=== PATIENT | male | born 1970 | race Caucasian/White ===

== ENCOUNTER → 2017-09-04 | Outpatient (CLI) | payer MEDICARE, OTHER ==
--- NOTE | 2017-09-04 16:21 | RADIOLOGY REPORT (SQ) ---
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 TECHNIQUE: CT scan of the chest performed using helical scanning technique with dynamic intravenous contrast injection. Images reviewed with lung, soft tissue and bone windows. Reconstructed coronal and sagittal MPR images reviewed. Additional 3 dimensional post-processing performed to develop Maximal Intensity Projection images (FL P). All images stored on PACS. All CT scanners at this facility use dose modulation, iterative reconstruction, and/or weight based d osing when appropriate to reduce radiation dose to as low as reasonably achievable (ALARA). [facility]: Dose Right [facility]: CareDose [facility]: Dose Right [facility]: Teradose 4D [facility]: [employer] CONTRAST TYPE AND DOSE: 100 cc Isovue 370- low osmolar. RENAL FUNCTION: Creatinine 1.0 RADIATION DOSE: . LIMITATIONS: None. FINDINGS: LUNGS AND PLEURA: No masses, infiltrates, pneumothorax. No pleural effusions, calcificati ons. AORTA AND GREAT VESSELS: No aneurysm. No dissection. HEART: No pericardial effusion. No significant coronary artery calcifications. PULMONARY ARTERIES: No emboli visualized in the main pulmonary arteries or the segmental branches. HILAR AND MEDIASTINAL STRUCTURES: No identified masses or abnormal nodes. HARDWARE: None in the chest. UPPER ABDOMEN: No significant findings. Limited exam. THYROID AND OTHER SOFT TISSUES: No masses. No adenopathy. BONES: No acute or significant finding. 3D MIPS: Confirm above findings. OTHER: No other significant finding. IMPRESSION: No evidence of aneurysm or dissection. COMMENT: Quality ID # [id number]: Final reports with documentation of one or more dose reduction techniques (e.g., Automated exposure control, adjustment of the mA and/or kV according to patient size, use of iterative reconstruction technique) TECHNICAL DOCUMENTATION: JOB ID: [id number] [employer]- All Rights Reserved Reading location - IP/workstation name: Unknown
== END ==
LOC: RAD 15:39
PROVIDERS: ATTEND Physician Assistant Medical
DX: I77.810 Thoracic aortic ectasia (principal)
CPT/HCPCS: 71275; 82565

== ENCOUNTER → 2017-11-27 | Day surgery (SDC) | payer MEDICARE, OTHER ==
[~2017-11-27] MED LIST: LIDOCAINE 1% INJ-PF (10 MG/ML) 30 ML SDV ONE
--- NOTE | 2017-11-27 14:11 | RADIOLOGY REPORT (SQ) ---
EXAM DESCRIPTION: FLUORO/NEEDLE PLACEMENT; ARTHRO SHOULDER INJECTION COMPLETED DATE/TIME: 11/27/2017 1:43 pm REASON FOR STUDY: S43.432A SUPERIOR GLENOID LABRUM LESION OF LEFT SHOULDER, INITIAL ENCOUNTER S43.43 2A SUPERIOR GLENOID LABRUM LESION OF LEFT SHOULDER, IN COMPARISON: None. FLUOROSCOPY TIME: 8 seconds 1 digital radiographic images saved to PACS. LIMITATIONS: None. PROCEDURE: Procedure, risks, benefits and alternatives explained to patient who then gave written co nsent. The posterior left shoulder was marked and a time out was called for correct procedure verific ation. Posterior entry site marked using fluoroscopic guidance. Shoulder prepped and draped using s terile technique. Local anesthesia achieved using 8 mL of 1% lidocaine injection. 22 gauge spinal n eedle introduced into the joint space under direct fluoroscopic visualization. Non-ionic contrast ins tilled to confirm intra-articular position. Dilute gadolinium solution then injected. Needle removed and entry site covered with sterile bandage. No immediate complications noted. TECHNIQUE: Digital images acquired during fluoroscopy and stored on PACS. Patient immediately take n to the MR suite for additional imaging. INJECTION LOCATION: Posterior left glenohumeral joint CONTRAST TYPE AND AMOUNT: 1 mL of Isovue 300 was injected to confirm intra-articular needle placement , followed by 10 mL of dilute Prohance/Saline mixture. IMPRESSION: SUCCESSFUL NEEDLE PLACEMENT AND INJECTION FOR LEFT SHOULDER MR ARTHROGRAM USING POSTERIO R APPROACH. COMMENT: Quality ID 145: Final reports for procedures using fluoroscopy that document radiation exp osure indices, or exposure time and number of fluorographic images (if radiation exposure indices are not available) TECHNICAL DOCUMENTATION: JOB ID: [id number] [employer]- All Rights Reserved Reading location - IP/workstation name: [facility]
--- NOTE | 2017-11-27 14:11 | RADIOLOGY REPORT (SQ) ---
EXAM DESCRIPTION: FLUORO/NEEDLE PLACEMENT; ARTHRO SHOULDER INJECTION COMPLETED DATE/TIME: 11/27/2017 1:43 pm REASON FOR STUDY: S43.432A SUPERIOR GLENOID LABRUM LESION OF LEFT SHOULDER, INITIAL ENCOUNTER S43.43 2A SUPERIOR GLENOID LABRUM LESION OF LEFT SHOULDER, IN COMPARISON: None. FLUOROSCOPY TIME: 8 seconds 1 digital radiographic images saved to PACS. LIMITATIONS: None. PROCEDURE: Procedure, risks, benefits and alternatives explained to patient who then gave written co nsent. The posterior left shoulder was marked and a time out was called for correct procedure verific ation. Posterior entry site marked using fluoroscopic guidance. Shoulder prepped and draped using s terile technique. Local anesthesia achieved using 8 mL of 1% lidocaine injection. 22 gauge spinal n eedle introduced into the joint space under direct fluoroscopic visualization. Non-ionic contrast ins tilled to confirm intra-articular position. Dilute gadolinium solution then injected. Needle removed and entry site covered with sterile bandage. No immediate complications noted. TECHNIQUE: Digital images acquired during fluoroscopy and stored on PACS. Patient immediately take n to the MR suite for additional imaging. INJECTION LOCATION: Posterior left glenohumeral joint CONTRAST TYPE AND AMOUNT: 1 mL of Isovue 300 was injected to confirm intra-articular needle placement , followed by 10 mL of dilute Prohance/Saline mixture. IMPRESSION: SUCCESSFUL NEEDLE PLACEMENT AND INJECTION FOR LEFT SHOULDER MR ARTHROGRAM USING POSTERIO R APPROACH. COMMENT: Quality ID 145: Final reports for procedures using fluoroscopy that document radiation exp osure indices, or exposure time and number of fluorographic images (if radiation exposure indices are not available) TECHNICAL DOCUMENTATION: JOB ID: [id number] [employer]- All Rights Reserved Reading location - IP/workstation name: [facility]
--- NOTE | 2017-11-27 16:00 | RADIOLOGY REPORT (SQ) ---
EXAM DESCRIPTION: MRI LT UPPER JOINT WITH COMPLETED DATE/TIME: 11/27/2017 2:44 pm REASON FOR STUDY: S43.432A SUPERIOR GLENOID LABRUM LESION OF LEFT SHOULDER, INITIAL ENCOUNTER S43.43 2A SUPERIOR GLENOID LABRUM LESION OF LEFT SHOULDER, IN COMPARISON: None. TECHNIQUE: Left shoulder images acquired and stored on PACS. Oblique coronal, oblique sagittal, and axial imaging to include fat sensitive sequences as T1, water sensitive sequences as FST2/STIR, and c ontrast sensitive sequences as FST1. LIMITATIONS: None. FINDINGS: JOINT DISTENTION: Adequate distention for interpretation. No leakage of intra-articular c ontrast into the subacromial/subdeltoid bursa. BONE MARROW AND CORTEX: Normal. No significant osteophytes. No edema or defects. AC JOINT: Type 4 acromion. Mild acromioclavicular joint bony spurring and synovial thickening. No si gnificant narrowing of the subacromial space. GLENOHUMERAL JOINT: No subluxation or dislocation. No focal chondral defects or reactive bone changes . ROTATOR CUFF: Intact without significant tendinopathy, partial or full-thickness tears. No peritendin itis. LABRUM AND BICEPS LABRAL COMPLEX: Normal signal in the rotator interval without tear of the superior glenohumeral ligament. Intra-articular long head biceps intact. Distal biceps in normal anatomic loc ation in bicipital groove. No paralabral cysts. There is a superior labral tear at the long head bic eps attachment which extends anteriorly, best shown on axial images 5-8 and coronal images 7-9. INFERIOR LABRAL COMPLEX: Bony glenoid and labrum intact. IGHL intact without thickening or tear. No p aralabral cysts. ADJACENT SOFT TISSUES: No masses or nodes. OTHER: No other significant finding. IMPRESSION: Superior labral tear extending anteriorly. TECHNICAL DOCUMENTATION: JOB ID: [id number] [employer]- All Rights Reserved Reading location - IP/workstation name: [email or web address]
== END ==
LOC: EDSTATUS 12:52 → RAD 12:55
PROVIDERS: ATTEND Orthopaedic Surgery
DX: S43.432A Superior glenoid labrum lesion of left shoulder, initial encounter (principal); X58.XXXA Exposure to other specified factors, initial encounter
CPT/HCPCS: 73222; 77002; 23350; A9576; J3490